=== PATIENT | male | born 1970 | race Caucasian/White ===

== ENCOUNTER → 2016-11-06 | Outpatient (CLI) | payer OTHER | LOC: M SLEEP 19:46 | PROVIDERS: ATTEND Nurse Practitioner Adult Health | DX: G47.30 Sleep apnea, unspecified (principal) ==

== ENCOUNTER → 2016-12-01 | Outpatient (CLI) | payer OTHER ==
--- NOTE | 2016-12-05 09:29 | SLEEPCENT ---
DATE OF PROCEDURE: 12/01/2016 REQUESTING PROVIDER: Gladys Paredes NP INTERPRETATION: Nocturnal polysomnography was performed for the titration of pressure therapy in this patient with obstructive sleep apnea syndrome, apnea-hypopnea index of 8.8. For testing, a [employer]Med Quattro full face mask of medium size, 5 cm of water pressure were initially applied to the circuit and the lights were extinguished. 6 hours and 34 minutes of data were reviewed. There were 263 minutes of sleep identified. Sleep latency was prolonged at 27 minutes. Rapid eye movement (REM) latency was further prolonged at 230 minutes. Sleep architecture initially showed fragmentation. Improvement was seen with optimal pressure therapy later in the test. The wake early in the study reduced the sleep efficiency to 67.8%. The patient's electrocardiogram (EKG) showed a sinus rhythm with an average heart rate of 60 beats per minute. Occasional unifocal ventricular ectopic beats were seen. Electroencephalogram (EEG) showed coarsening with alpha intrusion into non REM stages early in the study. No focal events were identified. Respiratory events were found best palliated with a CPAP to a pressure of +9. Pressure tolerance was good. There was some limb activity. Two trains of 30 events were identified, but arousals from limb events occurred 15.5 times per hour on this occasion. IMPRESSION: 1. Obstructive sleep apnea syndrome (G47.33). 2. Periodic limb movement disorder (G47.61). Limb movement arousal index of 15.5. RECOMMENDATIONS: Nightly use of pressure therapy at 9 cm of water should be sufficient to address the patient's respiratory events. Pending clinical response, interventions to reduce physical discomfort and/or arousals from limb activity may be helpful.
== END ==
LOC: M SLEEP 19:37
PROVIDERS: ATTEND Nurse Practitioner Adult Health
DX: G47.33 Obstructive sleep apnea (adult) (pediatric) (principal)

== ENCOUNTER 2023-04-24 12:08 | Emergency (ER) | payer OTHER ==
[~2023-04-24] VITALS: Ht 165.1 cm; Wt 96.8 kg
[2023-04-24 13:56] LABS: BASO % 0.4 % (0.0-1.0); EOS # 0.1 10^3/uL (0.0-0.5); EOS % 0.7 % (0.0-3.0); HEMATOCRIT 46.6 % (42.0-52.0); HEMOGLOBIN 16.3 g/dl (13.5-17.5); LYMPH # 1.2 10^3/uL (1.5-5.0); LYMPH % 16.1 % (24.0-44.0); MEAN CORPUSCULAR HEMOGLOBIN 30.5 pg (27.0-33.0); MEAN CORPUSCULAR VOLUME 87.1 fl (80.0-96.0); MONO # 0.5 10^3/uL (0.0-0.8); MONO % 6.8 % (2.0-8.0); NEUTROPHILS # 5.6 10^3/uL (1.5-8.5); NEUTROPHILS % 75.7 % (36.0-66.0); PLATELET COUNT, AUTOMATED 217 10^3/uL (150-450); RED BLOOD COUNT 5.35 10^6/uL (4.30-6.10); WHITE BLOOD COUNT 7.4 10^3/uL (4.0-10.0)
[2023-04-24 14:25] LABS: LIPASE 61 U/L (12-53)
[2023-04-24 14:27] LABS: ALBUMIN 4.6 G/DL (3.2-5.2); ALKALINE PHOSPHATASE 103 U/L (46-116); ALT/SGPT 38 U/L (7.0-40); AST/SGOT 16 U/L (<34); BILIRUBIN,DIRECT 0.3 MG/DL (<0.4); BILIRUBIN,TOTAL 1.2 MG/DL (0.3-1.2); BLOOD UREA NITROGEN 14 MG/DL (9-23); CALCIUM LEVEL 9.5 MG/DL (8.5-10.1); CARBON DIOXIDE LEVEL 31 MMOL/L (20-31); CHLORIDE LEVEL 102 MMOL/L (98-107); CREATININE FOR GFR 0.95 MG/DL (0.70-1.30); GLOMERULAR FILTRATION RATE > 60.0 (>56); GLUCOSE, FASTING 118 MG/DL (60-100); POTASSIUM SERUM 3.9 MMOL/L (3.5-5.1); SODIUM LEVEL 139 MMOL/L (136-145); TOTAL PROTEIN 7.5 G/DL (5.7-8.2)
[2023-04-24] MEDS ORDERED: ISOVUE-370 76% 100ML VIAL As Ordered ONE (14:41)
[2023-04-24 15:22] LABS: INR 0.91; PROTHROMBIN TIME 12.4 SECONDS (12.5-14.5)
[2023-04-24 15:23] LABS: PARTIAL THROMBOPLASTIN TIME 25.2 SECONDS (24.8-34.2)
[2023-04-24] MEDS ORDERED: MECLIZINE 25 MG TABLET PO ONE (15:30)
[2023-04-24] MEDS ORDERED: MECL-86 PO (15:40)
[2023-04-24 15:44] LABS: CK-MB VALUE MASS 1.5 NG/ML (<3.6)
[2023-04-24 15:46] LABS: CPK CREATINE PHOSPHOKINASE 125 U/L (46-171)
[2023-04-24 17:00] VITALS: BP 142/97; TEMP 98; O2SAT 97
== END 2023-04-24 17:02 | disposition home or self-care (01) ==
LOC: M ED 12:08
DX: H81.4 Vertigo of central origin (principal); I10 Essential (primary) hypertension
CPT/HCPCS: 36415; 70450; 70496; 70498; 71045; 80048; 80076; 82550; 82553; 83690; 84484; 85025; 85610; 85730; 87635; 93005; 93041; 94760; 99284; Q9967